=== PATIENT | female | born 1945 | race Caucasian/White ===

== ENCOUNTER → 2020-02-16 10:33 | Outpatient (BNVA) | payer MEDICARE, OTHER, SELFPAY | PROVIDERS: Family Provider Family Medicine; PCP Family Medicine; Visit Provider Internal Medicine | DX: M06.9 Rheumatoid arthritis, unspecified (principal); M79.7 Fibromyalgia; E11.9 Type 2 diabetes mellitus without complications; Z79.899 Other long term (current) drug therapy; Z79.84 Long term (current) use of oral hypoglycemic drugs | CPT/HCPCS: 36415; 80053; 85025; 85651; 86140; 99213 ==

== ENCOUNTER → 2020-05-05 10:21 | Outpatient (BNVA) | payer MEDICARE, OTHER, SELFPAY | PROVIDERS: Family Provider Family Medicine; PCP Family Medicine; Visit Provider Internal Medicine | DX: M06.9 Rheumatoid arthritis, unspecified (principal); M79.7 Fibromyalgia; Z79.899 Other long term (current) drug therapy | CPT/HCPCS: 36415; 80053; 85025; 99213 ==

== ENCOUNTER → 2020-09-14 10:55 | Outpatient (BNVA) | payer MEDICARE, OTHER, SELFPAY | PROVIDERS: Family Provider Family Medicine; PCP Family Medicine; Visit Provider Internal Medicine | DX: M06.9 Rheumatoid arthritis, unspecified (principal); Z79.899 Other long term (current) drug therapy | CPT/HCPCS: 99214 ==

== ENCOUNTER → 2020-12-17 10:57 | Outpatient (BNVA) | payer MEDICARE, OTHER, SELFPAY | PROVIDERS: Family Provider Family Medicine; PCP Family Medicine; Visit Provider Internal Medicine | DX: M06.9 Rheumatoid arthritis, unspecified (principal); Z79.899 Other long term (current) drug therapy; M25.50 Pain in unspecified joint | CPT/HCPCS: 73522; 73560; 73620; 80053; 85025; 85651; 99214 ==

== ENCOUNTER 2020-12-17 12:07 | Outpatient (CLI) | payer MEDICARE, OTHER, SELFPAY ==
--- NOTE | 2020-12-17 12:21 | XR_ITS ---
WS: [id number] Left hip, AP and frog leg views, 12/17/2020 Clinical Data: M06.9 - Rheumatoid arthritis, unspecified Comparison: None. Findings: No fractures or dislocations are seen. The hip joint is intact. The soft tissues are not remarkable. The adjacent pelvis is normal. The left SI joint and pubic symphysis are normal. No periarticular dem ineralization or calcifications are seen.
--- NOTE | 2020-12-17 12:21 | XR_ITS ---
WS: [id number] Left foot, 2 views, 12/17/2020 Clinical Data: M25.50 - Pain in unspecified joint Comparison: None. Findings: No fractures or dislocations are seen. No bone destruction or erosion is noted. The joint spaces and soft tissues are normal. No periarticular demineralization or calcifications are seen. XR/XR foot LT 2V [id number] Impression: Negative left foot.
--- NOTE | 2020-12-17 12:21 | XR_ITS ---
WS: [id number] Left knee, AP and lateral views, 12/17/2020 Clinical Data: M06.9 - Rheumatoid arthritis, unspecified Comparison: None. Findings: No fractures or dislocations are seen. The joint spaces are normal. The patella is intact. The soft t issues are unremarkable. No periarticular demineralization or calcifications are seen. XR/XR knee LT 1-2V [id number] Impression: Negative left knee.
--- NOTE | 2020-12-17 12:21 | XR_ITS ---
WS: [id number] Right knee, AP and lateral, 12/17/2020 Clinical Data: M06.9 - Rheumatoid arthritis, unspecified Comparison: None. Findings: No fractures or dislocations are seen. The joint spaces are normal. The patella is intact. The soft t issues are unremarkable. No periarticular demineralization or calcifications are seen. XR/XR knee RT 1-2V [id number] Impression: Negative right knee.
--- NOTE | 2020-12-17 12:21 | XR_ITS ---
NOTE: Report was unsigned for reason: Order was edited. Original Signature date and time was: 12/17/2020 1318 WS: [id number] Right hip, AP and frog leg views, 12/17/2020 Clinical Data: M06.9 - Rheumatoid arthritis, unspecified Comparison: None. Findings: No fractures or dislocations are seen. The hip joint is intact. The soft tissues are not remarkable. The adjacent pelvis is normal. The right SI joint and the pubic symphysis are normal. No periarticular demineralization or calcification is seen. Impression: Negative right hip. Left hip, AP and frog leg views, 12/17/2020 Clinical Data: M06.9 - Rheumatoid arthritis, unspecified Comparison: None. Findings: No fractures or dislocations are seen. The hip joint is intact. The soft tissues are not remarkable. The adjacent pelvis is normal. The left SI joint and pubic symphysis are normal. No periarticular demineralization or calcifications are seen. Impression: Negative left hip. [facility]
--- NOTE | 2020-12-17 12:21 | XR_ITS ---
WS: [id number] Right foot, 2 views, 12/17/2020 Clinical Data: M25.50 - Pain in unspecified joint Comparison: None. Findings: No fractures or dislocations are seen. No bone destruction or erosion is noted. The joint spaces and soft tissues are normal. There is a small bunion at the head of the right first metatarsal. No periarticular demineralization is seen. There is a small calcification adjacent to the lateral bas e of the right second proximal phalanx of the foot which may be from an old injury. XR/XR foot RT 2V [id number] Impression: 1. Small bunion had a right first metatarsal. 2. Probable posttraumatic calcification at the base of the right second toe pro ximal phalanx.
== END 2020-12-17 12:08 | disposition home or self-care (01) ==
LOC: RAD 12:12
PROVIDERS: PCP Family Medicine; Visit Provider Internal Medicine
DX: M06.9 Rheumatoid arthritis, unspecified (principal); M25.50 Pain in unspecified joint
CPT/HCPCS: 73502; 73522; 73560; 73620; 80053; 85025; 85651

== ENCOUNTER → 2021-03-01 11:32 | Outpatient (BNVA) | payer MEDICARE, OTHER, SELFPAY | PROVIDERS: PCP Family Medicine; Visit Provider Internal Medicine | DX: M06.9 Rheumatoid arthritis, unspecified (principal); Z79.899 Other long term (current) drug therapy; M25.552 Pain in left hip | CPT/HCPCS: 99214 ==

== ENCOUNTER → 2021-06-08 14:17 | Outpatient (BNVA) | payer MEDICARE, OTHER, SELFPAY | PROVIDERS: PCP Family Medicine; Visit Provider Internal Medicine | DX: M06.9 Rheumatoid arthritis, unspecified (principal); M25.552 Pain in left hip; R05.9 Cough, unspecified; Z79.899 Other long term (current) drug therapy | CPT/HCPCS: 36415; 80053; 85025; 85651; 86140; 99214 ==

== ENCOUNTER 2021-07-04 10:17 | Outpatient (CLI) | payer MEDICARE, OTHER, SELFPAY ==
--- NOTE | 2021-07-04 11:00 | MR_ITS ---
WS: [id number] MRI LEFT KNEE HISTORY: Chronic knee and hip pain. No injury. COMPARISON: 12/17/2020 radiographs Anterior cruciate ligament: Intact. Posterior cruciate ligament: Intact. Medial collateral ligament: Intact. Posterior lateral corner structures: Intact. Medial menisci: Intrasubstance degeneration in the posterior horn. No tear. Lateral meniscus: Mild intrasubstance degeneration in the posterior horn. Slightly greater increased signal towards the meniscal root of the posterior horn but no definite tear. Extensor mechanism: Distal quadriceps tendon and patellar tendons are intact. Fluid and soft tissue: No joint effusion. Small Gil's cyst. Osseous and articular structures: Patellofemoral compartment: Mild diffuse loss of cartilage over the lateral patellar facet. No marrow edema or fracture. Medial compartment: Mild narrowing of the medial compartment with thinning and fissuring of the carti quinton. No full-thickness defects within the cartilage. No marrow edema. Lateral compartment: Very minimal narrowing of the lateral compartment with thinning and fissuring of the cartilage. No marrow edema. MR/MR knee LT wo con* [id number] IMPRESSION: 1. Mild tricompartment chondromalacia. No marrow edema or full-thickness carti quinton defects. 2. Mild intrasubstance degeneration in the posterior meniscal horns. 3. Small Gil's cyst.
--- NOTE | 2021-07-04 11:45 | MR_ITS ---
WS: [id number] MRI LEFT HIP without CONTRAST. COMPARISON: Hip radiograph 12/17/2020. Multiplanar, multisequence imaging is performed without contrast. No marrow edema or fracture involving either hip. There is thickening over the LEFT greater trochante r consistent with trochanteric bursitis. Similar findings but to a lesser extent on the RIGHT. No lisa nt effusion is evident. No evidence for osteonecrosis or septic joint. SI joints are normal. No erosi ons or widening or edema. No muscle atrophy. MR/MR hip LT wo con* [id number] IMPRESSION: 1. Mild bilateral trochanteric bursitis, LEFT greater than RIGHT. 2. No marrow edema or fracture. 3. No joint effusion and no erosions.
== END 2021-07-04 10:18 | disposition home or self-care (01) ==
LOC: RADSHAW 10:18
PROVIDERS: PCP Family Medicine; Visit Provider Internal Medicine
DX: Z79.899 Other long term (current) drug therapy (principal); M19.90 Unspecified osteoarthritis, unspecified site
CPT/HCPCS: 73721

== ENCOUNTER → 2021-09-06 13:49 | Outpatient (BNVA) | payer MEDICARE, OTHER, SELFPAY | PROVIDERS: PCP Family Medicine; Visit Provider Internal Medicine | DX: M06.9 Rheumatoid arthritis, unspecified (principal); Z79.899 Other long term (current) drug therapy; M25.562 Pain in left knee; M70.60 Trochanteric bursitis, unspecified hip; Y93.9 Activity, unspecified; Z87.891 Personal history of nicotine dependence | CPT/HCPCS: 99214 ==

== ENCOUNTER 2022-03-18 21:30 | Emergency (ER) | payer MEDICARE, OTHER, SELFPAY ==
[2022-03-18 21:35] VITALS: BP 178/72; PULSE 85; RESP 18; TEMP 36.8; O2SAT 97; BMI 24.4
--- NOTE | 2022-03-18 22:03 | ED_ITS ---
HPI - Dental/Oral General: Chief complaint: Dental/Oral Stated complaint: dental pain Time Seen by Provider: 03/18/22 21:58 History of Present Illness: 76-year-old presents due to left lower dental pain. States this started . Denies any shortness of breath or throat swelling. Denies any facial swelling. Denies any fevers or chills. States that when pain is severe it causes her nausea. But denies any abdominal pain. Review of Systems Narrative: - CONSTITUTIONAL: Denies weight loss, fever and chills. - HEENT: Dental pain, denies changes in vision and hearing. - RESPIRATORY: Denies SOB and cough. - CV: Denies palpitations and CP. - GI: As above - : Denies dysuria and urinary frequency. - MSK: Denies myalgia and joint pain. - SKIN: Denies rash and pruritus. - NEUROLOGICAL: Denies headache, weakness, numbness and syncope. - PSYCHIATRIC: Denies suicidal ideation [facility] ED PFSH: Medical History (Updated 03/18/22 @ 22:03 by Kyler Barraza MD) Fibromyalgia Rheumatoid arthritis Social History Smoking and tobacco status: former smoker Alcohol intake: never History of recent travel: No Physical Exam Narrative: EXAM NARRATIVE: - GENERAL: Alert and oriented x 3. No acute distress. Well-nourished. - EYES: EOMI. Anicteric. - HENT: Dental caries present, uvula is midline, no stridor, no induration under the tongue around neck, no signs of Montez's angina. Atraumatic, no C-spine tenderness. Moist mucous membranes. No scleral icterus. No cervical lymphadenopathy. - LUNGS: Clear to auscultation bilaterally. No accessory muscle use. Equal lung sounds bilaterally. No respiratory distress. - CARDIOVASCULAR: Regular rate and rhythm. No murmur. No JVD. - ABDOMEN: Soft, non-tender and non-distended. Negative CVA tenderness bilaterally, no rebound or guarding, negative Kellogg sign. No palpable masses. - EXTREMITIES: No edema. Non-tender. - SKIN: No rashes or lesions. Warm. - NEUROLOGIC: No meningismus or focal neurological deficits. CN II-XII grossly intact. - PSYCHIATRIC: Cooperative. Appropriate mood and affect. Course Vital Signs: Vital signs: Vital Signs Temperature 98.2 F 03/18/22 21:35 Pulse Rate 85 03/18/22 21:35 Respiratory Rate 18 03/18/22 21:35 Blood Pressure 178/72 03/18/22 21:35 Pulse Oximetry 97 03/18/22 21:35 MDM - Dental/Oral Medical Decision Making 76-year-old presents due to dental pain. On exam does have dental caries but no sign of deeper tissue infection. There is no soft tissue swelling. Do not see any sign of deeper abscess or infection requiring CT scan at this time. She is tolerating secretions. Prescription for penicillin [place] and Zofran provided. At this time I believe patient would be safe for discharge and outpatient follow-up. Return precautions provided. Plan was reviewed with the patient who expressed understanding. Questions answered. Patient will follow up with dentist and PCP. Patient discharged in stable condition. Discharge Plan Discharge Patient Disposition: Home Clinical Impression: Pain, dental Condition: Stable Prescriptions: New hydrocodone-acetaminophen 5-325 mg tablet 1 tab PO Q8H PRN (Reason: pain) 3 Days Qty: 9 0RF ondansetron 4 mg tablet,disintegrating 4 mg PO TID PRN (Reason: nausea and vomiting) 3 Days Qty: 10 0RF penicillin V potassium 500 mg tablet 500 mg PO Q6H 7 Days Qty: 28 0RF No Action amlodipine 5 mg tablet 5 mg PO DAILY 0RF methotrexate sodium 2.5 mg tablet 2.5 mg PO .Weekly 0RF gabapentin 300 mg capsule 300 mg PO TID 0RF folic acid 1 mg tablet 1 mg PO DAILY 0RF omeprazole 20 mg capsule,delayed release(DR/EC) 20 mg PO DAILY 0RF bupropion HCl 300 mg tablet extended release 24 hr 300 mg PO QAM 0RF losartan-hydrochlorothiazide [Hyzaar] 100-25 mg tablet 1 tab PO DAILY 0RF metformin 500 mg tablet 500 mg PO DAILY 0RF Xeljanz XR 11 mg tablet extended release 24 hr 11 mg PO DAILY Qty: 30 5RF Januvia 25 mg tablet 25 mg PO DAILY 0RF Discharge Orders: Discharge ED (Routine); Ordered 03/18/22 Ordered By: Kyler Barraza Referrals: your, dentist [Other] - 1-3 days Sariah Potter MD [Primary Care Provider] - 1-3 days Patient Instructions: Toothache (ED), Opioid Safety Coding Level of Care Code 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
[2022-03-18] MEDS: HYDROcodone-acetaminophen 5-325 mg Tablet 1 TAB PO (22:14)
== END 2022-03-18 22:18 | disposition home or self-care (01) ==
PROVIDERS: Emergency Provider Emergency Medicine; PCP Family Medicine
DX: K08.89 Other specified disorders of teeth and supporting structures (principal); Z79.84 Long term (current) use of oral hypoglycemic drugs; Z87.891 Personal history of nicotine dependence
CPT/HCPCS: 99283

== ENCOUNTER → 2022-08-04 11:22 | Outpatient (BNVA) | payer MEDICARE, OTHER, SELFPAY | PROVIDERS: PCP Family Medicine; Visit Provider Internal Medicine | DX: M06.9 Rheumatoid arthritis, unspecified (principal); M25.552 Pain in left hip; M25.551 Pain in right hip | CPT/HCPCS: 73521; 73522 ==

== ENCOUNTER → 2022-09-18 15:22 | Outpatient (BNVA) | payer MEDICARE, OTHER, SELFPAY | PROVIDERS: PCP Family Medicine; Visit Provider Internal Medicine | DX: M06.9 Rheumatoid arthritis, unspecified (principal) | CPT/HCPCS: 80053; 85025; 85651; 86140 ==

== ENCOUNTER → 2022-11-17 10:59 | Outpatient (BNVA) | payer MEDICARE, OTHER, SELFPAY | PROVIDERS: PCP Family Medicine; Visit Provider Internal Medicine | DX: M06.9 Rheumatoid arthritis, unspecified (principal); M79.7 Fibromyalgia; M25.559 Pain in unspecified hip; M25.562 Pain in left knee; Z79.899 Other long term (current) drug therapy | CPT/HCPCS: 20552; 20610; 72040; 99214; J1030 ==

== ENCOUNTER → 2023-07-26 10:14 | Outpatient (BNVA) | payer MEDICARE, OTHER, SELFPAY | PROVIDERS: PCP Family Medicine; Visit Provider Internal Medicine | DX: Z79.899 Other long term (current) drug therapy (principal); M06.9 Rheumatoid arthritis, unspecified; M53.3 Sacrococcygeal disorders, not elsewhere classified; L40.9 Psoriasis, unspecified; D64.9 Anemia, unspecified | CPT/HCPCS: 36415; 72202; 73502; 80053; 85025; 85651; 86140; 99214 ==

== ENCOUNTER → 2023-12-19 13:32 | Outpatient (BNVA) | payer MEDICARE, OTHER, SELFPAY | PROVIDERS: PCP Family Medicine; Visit Provider Internal Medicine Rheumatology | DX: Z79.899 Other long term (current) drug therapy (principal); D64.9 Anemia, unspecified; M05.79 Rheumatoid arthritis with rheumatoid factor of multiple sites without organ or systems involvement; Z71.85 Encounter for immunization safety counseling | CPT/HCPCS: 36415; 80076; 82565; 85025; 86140; 99214 ==

== ENCOUNTER → 2024-05-07 13:42 | Outpatient (BNVA) | payer MEDICARE, OTHER, SELFPAY | PROVIDERS: PCP Family Medicine; Visit Provider Internal Medicine Rheumatology | DX: D50.9 Iron deficiency anemia, unspecified (principal); M05.79 Rheumatoid arthritis with rheumatoid factor of multiple sites without organ or systems involvement; Z79.899 Other long term (current) drug therapy; Z71.85 Encounter for immunization safety counseling | CPT/HCPCS: 36415; 80076; 82565; 85025; 85651; 86140; 99214 ==

== ENCOUNTER → 2024-10-21 10:56 | Outpatient (BNVA) | payer MEDICARE, OTHER, SELFPAY | PROVIDERS: PCP Family Medicine; Visit Provider Nurse Practitioner | DX: E11.9 Type 2 diabetes mellitus without complications (principal); M25.561 Pain in right knee | CPT/HCPCS: 73562; 83036 ==

== ENCOUNTER → 2025-01-02 11:40 | Outpatient (BNVA) | payer MEDICARE, OTHER, SELFPAY | PROVIDERS: PCP Nurse Practitioner; Visit Provider Nurse Practitioner | DX: E11.9 Type 2 diabetes mellitus without complications (principal) | CPT/HCPCS: 83036 ==

== ENCOUNTER → 2025-04-03 11:15 | Outpatient (BNVA) | payer MEDICARE, OTHER, SELFPAY | PROVIDERS: PCP Nurse Practitioner; Visit Provider Nurse Practitioner | DX: I10 Essential (primary) hypertension (principal); E11.9 Type 2 diabetes mellitus without complications | CPT/HCPCS: 80053; 80061; 83036; 85025 ==

== ENCOUNTER → 2025-04-08 11:13 | Outpatient (BNVA) | payer MEDICARE, OTHER, SELFPAY | PROVIDERS: PCP Nurse Practitioner; Visit Provider Podiatrist Foot & Ankle Surgery | DX: M79.671 Pain in right foot (principal); M19.071 Primary osteoarthritis, right ankle and foot; M06.9 Rheumatoid arthritis, unspecified | CPT/HCPCS: 73630; 99203 ==

== ENCOUNTER 2025-05-26 12:12 | Outpatient (CLI) | payer MEDICARE, OTHER, SELFPAY | END 2025-05-26 12:13 | disposition home or self-care (01) | LOC: SPT 12:12 | PROVIDERS: PCP Nurse Practitioner; Visit Provider Podiatrist Foot & Ankle Surgery | DX: Z46.89 Encounter for fitting and adjustment of other specified devices (principal); M19.079 Primary osteoarthritis, unspecified ankle and foot | CPT/HCPCS: L3030 ==

== ENCOUNTER → 2025-06-03 14:31 | Outpatient (BNVA) | payer MEDICARE, OTHER, SELFPAY | PROVIDERS: PCP Nurse Practitioner; Visit Provider Internal Medicine Rheumatology | DX: D64.9 Anemia, unspecified (principal); M05.79 Rheumatoid arthritis with rheumatoid factor of multiple sites without organ or systems involvement; Z79.899 Other long term (current) drug therapy; Z71.85 Encounter for immunization safety counseling | CPT/HCPCS: 99214 ==

== ENCOUNTER 2025-06-08 05:30 | Day surgery (SDC) | payer MEDICARE, OTHER, SELFPAY ==
[2025-06-08] VITALS (7 sets, daily range): BP systolic 160–186; BP diastolic 69–94; PULSE 72–83; RESP 16–17; TEMP 36.2–36.3; O2SAT 95–96; BMI 25.0
[2025-06-08] MEDS: acetaminophen 1,000 MG/100 ML PIGGYBACK 400 MG IV (06:28)
--- NOTE | 2025-06-08 06:47 | W.PM.OPSUD ---
Surgery/Procedure H&P Update DATE OF PROCEDURE: June 08, 2025 DATE H&P PERFORMED: 05/26/25 H&P UPDATE INFORMATION: I have reviewed H&P completed within last 30 days, I have examined patient prior to procedure, No changes to prior documentation, H&P is in [facility] EMR on date indicated and Risks and benefits of the procedure reviewed PREOP DIAGNOSIS: Soft tissue mass right ankle PLANNED PROCEDURE: Operation Date: 06/08/25 07:00 Proposed Procedures p Excision soft tissue right ankle(Right) - Isaac Bolton DPM
[2025-06-08] MEDS: BUPivacaine 0.5% INJ 30 mL 10 ML INJECTION (07:00)
[2025-06-08] MEDS: ceFAZolin 2,000 mg SDV 2000 MG IVP (07:05)
--- NOTE | 2025-06-08 07:21 | PM.OP ---
Operative Report Date of procedure: June 08, 2025 Surgeon: Isaac Bolton DPM Procedure: Date of procedure: 06/08/2025 Pre-op diagnosis: Right ankle soft tissue mass Post-op diagnosis: Same Post-op findings: Soft tissue mass right Procedure done: Soft tissue mass excision right ankle CPT 82835 Implants: None Specimens removed: Soft tissue mass right Surgeon: Dr. Isaac Bolton DPM Photographic Processor: Richard Estimated blood loss: 3 cc Tourniquet time: No tourniquet Complications: None Patient is a 79-year-old female right ankle soft tissue mass that has a history of . The patient has had the aforementioned chief complaint for some time. Conservative treatment measures have been attempted and the patient has opted for surgical intervention at this time. A lengthy discussion regarding the procedure, including risks and complications has been had with the patient and is noted in the recent clinic note. Written and verbal consent have been obtained. All patient questions have been answered to the patient?s satisfaction. No written or verbal guarantees have been given or implied. The patient has been NPO since midnight. The history has been reviewed and the history and physical is current. The signed consent was confirmed and placed in the patient chart. Patient imaging has been reviewed and is consistent with the diagnosis. Under mild sedation, the patient was brought into the operating room and placed on the table in the supine position. IV antibiotics were given by the anesthesia team as preoperative surgical prophylaxis. local anesthesia was provided using 0.5% Marcaine plain. The operative extremity was then prepped and draped in the usual fashion. After prep, following procedure was then performed. Attention was directed to the right ankle where a soft tissue mass was noted to be adjacent to the insertion of the tibialis anterior tendon on the navicular tuberosity. This measured 1.0 cm circumferentially approximately. Stock attaching to skin was noted to have a diameter of approximately 3 mm. #15 blade was used to make an elliptical incision at the stalk of the soft tissue attachment. This was removed from the operative field and sent a specimen. The specimen appeared to be superficial and did not extend into the deep fascia of the right ankle. Site was irrigated with sterile saline before attention was directed to closure. Skin was closed with 4-0 nylon in simple interrupted fashion. The site was dressed with Xeroform, 4 x 4 gauze, Kerlix, Coban. The patient tolerated the procedure and anesthesia well and without complication. The patient was transported from the operating room to the recovery room with vital signs stable and vascular status intact to all digits of the right foot. The patient was given both written and verbal instructions to remain weightbearing as tolerated in postop shoe to the operative extremity, to keep dressings/splint clean, dry and intact and to take pain medication as directed. The patient will follow-up in the outpatient setting at their scheduled appointment. The patient was discharged with my personal number and was instructed to call if any questions or issues should arise. They were discharged home once anesthesia criteria was met.
== END 2025-06-08 07:40 | disposition home or self-care (01) ==
PROVIDERS: PCP Nurse Practitioner; Visit Provider Podiatrist Foot & Ankle Surgery
PROC: (CPT 27618; principal; 2025-06-08 07:00)
DX: D36.13 Benign neoplasm of peripheral nerves and autonomic nervous system of lower limb, including hip (principal); E11.9 Type 2 diabetes mellitus without complications; K21.9 Gastro-esophageal reflux disease without esophagitis; Z79.84 Long term (current) use of oral hypoglycemic drugs; M79.7 Fibromyalgia; M06.9 Rheumatoid arthritis, unspecified
CPT/HCPCS: 27618; 36416; 82962; 88307; J0131; J0690; J2704; J3010; J3490; J7030; J9999

== ENCOUNTER → 2025-06-15 15:26 | Outpatient (BNVA) | payer MEDICARE, OTHER, SELFPAY | PROVIDERS: PCP Nurse Practitioner; Visit Provider Podiatrist Foot & Ankle Surgery | DX: M19.071 Primary osteoarthritis, right ankle and foot (principal); M06.9 Rheumatoid arthritis, unspecified | CPT/HCPCS: 99024 ==

== ENCOUNTER → 2025-06-18 11:37 | Outpatient (BNVA) | payer MEDICARE, OTHER, SELFPAY | PROVIDERS: PCP Nurse Practitioner; Visit Provider Nurse Practitioner | DX: R05.9 Cough, unspecified (principal) | CPT/HCPCS: 87400; 87426 ==

== ENCOUNTER → 2025-06-23 12:59 | Outpatient (BNVA) | payer MEDICARE, OTHER, SELFPAY | PROVIDERS: PCP Nurse Practitioner; Visit Provider Podiatrist Foot & Ankle Surgery | DX: M06.9 Rheumatoid arthritis, unspecified (principal); M19.071 Primary osteoarthritis, right ankle and foot; M79.671 Pain in right foot | CPT/HCPCS: 99024 ==

== ENCOUNTER → 2025-07-29 11:27 | Outpatient (BNVA) | payer MEDICARE, OTHER, SELFPAY | PROVIDERS: PCP Nurse Practitioner; Visit Provider Nurse Practitioner | DX: Z79.899 Other long term (current) drug therapy (principal); M79.7 Fibromyalgia | CPT/HCPCS: 80076; 82306; 82565; 85025; 85651; 86140; 86480 ==